=== PATIENT | female | born 1980 | race Hispanic/Latino ===

== ENCOUNTER 2018-07-22 06:37 | Observation (INO) | payer SELFPAY ==
[2018-07-22] MEDS ORDERED: ONDANSETRON 4 MG/2 ML VIAL ONE (07:32)
[2018-07-22] MEDS ORDERED: DICYCLOMINE HCL 10 MG CAP ONE (07:32)
[2018-07-22] MEDS ORDERED: NA CHLORIDE 0.9% 1,000 ML ONE (07:33)
[2018-07-22] MEDS ORDERED: FAMOTIDINE 20 MG/2 ML VIAL IV ONE (07:33)
[2018-07-22 07:37] LABS: Absolute Lymphocytes (CBC) 3.7 K/uL (0.7-4.9); Absolute Monocytes 0.8 K/uL (0.1-1.3); Absolute Neutrophil 8.7 K/uL (1.8-8.0); Basophils % 0.6 % (0-1.3); Eosinophils % 2.7 % (0-4.4); Hematocrit 37.4 % (36.0-45.0); MCH 28.6 pg (27.0-35.0); MCV 84.5 fL (80-100); MPV 8.7 fL (7.6-11.3); Monocytes % 6.1 % (3.3-12.3); RBC Red Blood Cell Count 4.43 M/uL (3.86-4.86)
[2018-07-22 07:45] LABS: ALT/SGPT 24 U/L (12-78); AST/SGOT 16 U/L (15-37); Alkaline Phosphatase 81 U/L (45-117); BUN Blood Urea Nitrogen 10 mg/dL (7-18); Bicarbonate 27 mmol/L (21-32); Bilirubin Direct < 0.1 mg/dL (0-0.2); Bilirubin Total 0.3 mg/dL (0.2-1.0); Glucose Level 119 mg/dL (74-106); Lipase 139 U/L (73-393); Magnesium 2.3 mg/dL (1.8-2.4); Potassium 3.6 mmol/L (3.5-5.1); Protein, Total 7.7 g/dL (6.4-8.2); Sodium Level 138 mmol/L (136-145)
[2018-07-22] MEDS ORDERED: MORPHINE 4 MG/ML SYR ONE (07:59)
[2018-07-22] MEDS ORDERED: MAGNE/ALUM HYDROXD 30 ML UCUP ONE (08:26)
[2018-07-22] MEDS ORDERED: LIDOCAINE VISCOUS 2% SOLN 15 ML UDC ONE (08:26)
[2018-07-22 08:27] LABS: Urine Bacteria 20-50 /HPF (<20); Urine Culture Reflex Order REFLEXED; Urine RBC <5 /HPF (NONE SEEN)
--- NOTE | 2018-07-22 08:27 | RAD REPORT ---
EXAM DESCRIPTION: US - Abdomen Exam Limited - 07/22/2018 7:43 am CLINICAL HISTORY: Abdominal pain, epigastric pain Preliminary findings provided at the time of the study. COMPARISON: None. FINDINGS: Multiple sub centimeter layering gallstones are identifiable. No pericholecystic fluid is present. Mild gallbladder wall thickening is present. No common duct stone or biliary tree dilatation identified. IMPRESSION: Multi stone cholelithiasis with gallbladder wall thickening.
--- NOTE | 2018-07-22 08:33 | ER ---
Nurse's Notes [facility] Name: Yadira Beth Age: 37 yrs Sex: Female : 1980 Arrival Date: 07/22/2018 Time: 06:38 Bed 14 Private MD: Diagnosis: Cholecystitis Presentation: 07/22 06:59 Presenting complaint: Patient states: pain to upper abdomen for the past three months, ch worse the past few days. no vomiting or diarrhea. Transition of care: patient was not received from another setting of care. Onset of symptoms was January 2018. Risk Assessment: Do you want to hurt yourself or someone else? Patient reports no desire to harm self or others. Initial Sepsis Screen: Does the patient meet any 2 criteria? No. Patient's initial sepsis screen is negative. Does the patient have a suspected source of infection? No. Patient's initial sepsis screen is negative. Care prior to arrival: None. 06:59 Method Of Arrival: Ambulatory 06:59 Acuity: ITA 3 ch Triage Assessment: 07:01 General: Appears in no apparent distress. comfortable, Behavior is calm, cooperative, ch appropriate for age. Pain: Complains of pain in abdomen Pain currently is 9 out of 10 on a pain scale. Pain began suddenly. Respiratory: Airway is patent Respiratory effort is even, unlabored, Breath sounds are clear bilaterally. GI: Abdomen is round non-distended, Bowel sounds present X 4 quads. Abd is soft X 4 quads Abdomen is tender to palpation in epigastric area, umbilical area, right upper quadrant and left upper quadrant. Derm: Skin is pink, warm \T\ dry. 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 - Social history:: Smoking status: Patient/guardian denies using tobacco. - Ebola Screening: : Patient negative for fever greater than or equal to 101.5 degrees Fahrenheit, and additional compatible Ebola Virus Disease symptoms Patient denies exposure to infectious person Patient denies travel to an Ebola-affected area in the 21 days before illness onset No symptoms or risks identified at this time. Screenin:03 Abuse screen: Denies threats or abuse. Denies injuries from another. Nutritional ch screening: No deficits noted. Tuberculosis screening: No symptoms or risk factors identified. Fall Risk None identified. Assessment: 07:03 Reassessment: Patient appears in no apparent distress at this time. Patient and/or ch family updated on plan of care and expected duration. Pain level reassessed. Patient is alert, oriented x 3, equal unlabored respirations, skin warm/dry/pink. 07:35 Reassessment: Patient appears in no apparent distress at this time. us at bedside. pt ch is very restless, c/o increase in pain. 07:57 Reassessment: Patient appears in no apparent distress at this time. pt states she does ch not feel any better, new orders obtained for medications. 08:47 Reassessment: Patient appears in no apparent distress at this time. pt is changing and ch removing all belongings for preparation for surgery. Patient states feeling better. Patient states symptoms have improved. 10:00 Reassessment: Patient appears in no apparent distress at this time. I attemped to call ch report, awaiting return call. 10:24 Reassessment: Patient appears in no apparent distress at this time. Patient and/or ch family updated on plan of care and expected duration. Pain level reassessed. Patient is alert, oriented x 3, equal unlabored respirations, skin warm/dry/pink. awaiting floor to return my call so pt can be admitted. Patient states feeling better. Patient states symptoms have improved. Vital Signs: 07:01 BP 123 / 85; Pulse 77; Resp 16; Temp 98.3; Pulse Ox 99% on R/A; Weight 63.5 kg; Height 5 ft. 6 in. (167.64 cm); Pain 8/10; 08:00 BP 120 / 52; Pulse 60; Resp 14; Pulse Ox 100% on R/A; ch 08:35 BP 127 / 78; Pulse 62; Resp 14; Temp 98.9; Pulse Ox 99% on R/A; Pain 2/10; ch 09:30 BP 124 / 76; Pulse 65; Resp 18; Temp 98.5; Pulse Ox 99% on R/A; Pain 3/10; ch 10:24 BP 115 / 62; Pulse 58; Resp 18; Pulse Ox 100% on R/A; Pain 4/10; ch 07:01 Body Mass Index 22.60 (63.50 kg, 167.64 cm) ED Course: 06:38 Patient arrived in ED. ds1 06:42 Christopher Chester PA is PHCP. cp 06:42 Jimmie Billings MD is Attending Physician. cp 06:59 Sandra Springer, KATHRYN is Primary Nurse. ch 07:00 Triage completed. ch 07:01 Arm band placed on left wrist. Patient placed in an exam room, on a stretcher, on pulse ch oximetry. 07:03 Patient has correct armband on for positive identification. Placed in gown. Bed in low ch position. Call light in reach. Side rails up X 1. Adult w/ patient. Pulse ox on. NIBP on. 07:03 No provider procedures requiring assistance completed. ch 07:23 Inserted saline lock: 22 gauge in right forearm, using aseptic technique. ch 07:28 Damien Tolbert MD is Attending Physician. cp 07:41 Ultrasound completed. Patient tolerated well. aa4 07:43 US Abdomen Limited: RUQ/epigastric In Process Unspecified. EDMS 08:00 Warm blanket given. ch 08:32 Pradip Carias MD is Hospitalizing Provider. cp 08:36 No apparent distress. Resting quietly. ch 08:36 Patient admitted, IV remains in place. ch 10:32 Urine Culture Sent. ch Administered Medications: 07:32 Drug: Bentyl 20 mg Route: PO; ch 07:56 Follow up: Response: No adverse reaction; No change in condition ch 07:33 Drug: Zofran 4 mg Route: IVP; Site: right forearm; ch 07:56 Follow up: Response: No adverse reaction; No change in condition ch 07:33 Drug: NS 0.9% 1000 ml Route: IV; Rate: 1 bolus; Site: right forearm; ch 08:15 Follow up: IV Status: Completed infusion; IV Intake: 1000ml ch 07:34 Drug: Pepcid 20 mg Route: IVP; Site: right forearm; ch 07:56 Follow up: Response: No adverse reaction; No change in condition ch 07:56 Drug: morphine 4 mg Route: IVP; Site: right forearm; ch 08:16 Follow up: Response: No adverse reaction; Marked relief of symptoms ch 08:20 Drug: GI Cocktail without - (Maalox Suspension 30 ml, Lidocaine Liquid 2 % 15 ch ml) Route: PO; 08:34 Follow up: Response: No adverse reaction 08:45 Drug: Zosyn 3.375 grams Route: IVPB; Infused Over: 60 mins; Site: right forearm; 10:26 Follow up: IV Status: Completed infusion; IV Intake: 100ml Intake: 08:15 IV: 1000ml; Total: 1000ml. 10:26 IV: 100ml; Total: 1100ml. Outcome: 08:33 Decision to Hospitalize by Provider. cp 10:33 Admitted to Med/surg accompanied by tech, via wheelchair, room 421, Report called to Orly 10:33 Condition: stable 10:33 Instructed on the need for admit. 10:37 Patient left the ED. Signatures: Dispatcher [employer] Sandra Jarvis, KATHRYN RN Ying Brar ds1 Ronda Hartman aa4 Christopher Chester, PA PA
--- NOTE | 2018-07-22 08:33 | EDPHYS ---
Physician Documentation [facility] Name: Yadira Beth Age: 37 yrs Sex: Female : 1980 Arrival Date: 07/22/2018 Time: 06:38 Bed 14 Private MD: ED Physician Damien Tolbert HPI: 07/22 07:15 This 37 yrs old Female presents to ER via Ambulatory with complaints of cp Abdominal Pain - Upper, Back Pain. 07:15 The patient presents with abdominal pain in the epigastric area. Onset: The cp symptoms/episode began/occurred for months, became worse 5 days ago. The symptoms radiate to back. Associated signs and symptoms: Pertinent positives: nausea. 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 - Social history:: Smoking status: Patient/guardian denies using tobacco. - Ebola Screening: : Patient negative for fever greater than or equal to 101.5 degrees Fahrenheit, and additional compatible Ebola Virus Disease symptoms Patient denies exposure to infectious person Patient denies travel to an Ebola-affected area in the 21 days before illness onset No symptoms or risks identified at this time. ROS: 07:20 Constitutional: Negative for body aches, chills, fever, poor PO intake. cp 07:20 Eyes: Negative for injury, pain, redness, and discharge. cp 07:20 Cardiovascular: Negative for chest pain, palpitations. cp 07:20 Respiratory: Negative for cough, shortness of breath, wheezing. 07:20 Abdomen/GI: Positive for abdominal pain, nausea and vomiting, Negative for diarrhea, constipation, black/tarry stool, rectal bleeding. 07:20 Back: Positive for radiated pain, Negative for injury or acute deformity. 07:20 : Negative for urinary symptoms. 07:20 Skin: Negative for cellulitis, rash. 07:20 Neuro: Negative for headache. 07:20 All other systems are negative. cp Exam: 07:30 Constitutional: The patient appears in no acute distress, alert, awake, non-toxic, well cp developed, well nourished, uncomfortable. 07:30 Head/Face: Normocephalic, atraumatic. cp 07:30 Eyes: Periorbital structures: appear normal, Conjunctiva: normal, no exudate, no injection, Sclera: no appreciated abnormality, Lids and lashes: appear normal, bilaterally. 07:30 ENT: External ear(s): are unremarkable, Nose: is normal, Mouth: Lips: moist, Oral mucosa: pink and intact, moist, Posterior pharynx: is normal, airway is patent, no erythema, no exudate, Voice: is normal. 07:30 Neck: ROM/movement: is normal, is supple, without pain, no range of motions limitations, no nuchal rigidity. 07:30 Chest/axilla: Inspection: normal, Palpation: is normal, no crepitus, no tenderness. 07:30 Cardiovascular: Rate: normal, Rhythm: regular. 07:30 Respiratory: the patient does not display signs of respiratory distress, Respirations: normal, no use of accessory muscles, no retractions, no splinting, no tachypnea, labored breathing, is not present, Breath sounds: are clear throughout, no decreased breath sounds, no stridor, no wheezing. 07:30 Abdomen/GI: Inspection: abdomen appears normal, Bowel sounds: active, all quadrants, Palpation: soft, in all quadrants, moderate abdominal tenderness, in the epigastric area and right upper quadrant, rebound tenderness, is not appreciated, voluntary guarding, is elicited in the epigastric area and right upper quadrant. 07:30 Back: pain, that is moderate, of the mid back area, ROM is normal. 07:30 Skin: cellulitis, is not appreciated, no rash present. 07:30 Neuro: Orientation: to person, place \T\ time. Mentation: is normal, Cerebellar function: is grossly normal, Motor: moves all fours, strength is normal, Sensation: is normal. Vital Signs: 07:01 BP 123 / 85; Pulse 77; Resp 16; Temp 98.3; Pulse Ox 99% on R/A; Weight 63.5 kg; Height ch 5 ft. 6 in. (167.64 cm); Pain 8/10; 08:00 BP 120 / 52; Pulse 60; Resp 14; Pulse Ox 100% on R/A; ch 08:35 BP 127 / 78; Pulse 62; Resp 14; Temp 98.9; Pulse Ox 99% on R/A; Pain 2/10; ch 09:30 BP 124 / 76; Pulse 65; Resp 18; Temp 98.5; Pulse Ox 99% on R/A; Pain 3/10; ch 10:24 BP 115 / 62; Pulse 58; Resp 18; Pulse Ox 100% on R/A; Pain 4/10; ch 07:01 Body Mass Index 22.60 (63.50 kg, 167.64 cm) MDM: 06:56 Patient medically screened. cp 08:00 Differential diagnosis: appendicitis, gastritis, pancreatitis, Peptic Ulcer Disease, cp Perf. Duodenal Ulcer, Perf. Gastric Ulcer, Pyelonephritis, Ureterolithiasis, urinary tract infection. 08:30 Data reviewed: vital signs, nurses notes, lab test result(s), radiologic studies, cp ultrasound, I have discussed the patient's presentation/case with the attending Emergency Department Physician; and as a result, I will admit patient. 08:30 Counseling: I had a detailed discussion with the patient and/or guardian regarding: the cp historical points, exam findings, and any diagnostic results supporting the discharge/admit diagnosis, lab results, radiology results. 08:35 Physician consultation: Pradip Carias MD was called at 08:33, was contacted at 08:33, regarding admission, to the medical/surgical unit. patient's condition. 07/22 07:11 Order name: Basic Metabolic Panel; Complete Time: 07:50 07/22 08:15 Interpretation: Normal except: GLUC 119. 07/22 07:11 Order name: CBC with Diff; Complete Time: 08:15 07/22 08:15 Interpretation: Normal except: WBC 13.6; NEUT A 8.7. 07/22 07:11 Order name: Creatinine for Radiology; Complete Time: 08:15 07/22 07:11 Order name: Hepatic Function; Complete Time: 07:50 cp 07/22 07:11 Order name: Lipase; Complete Time: 07:50 cp 07/22 07:11 Order name: Magnesium; Complete Time: 07:50 07/22 07:25 Order name: Urine Dipstick--Ancillary (enter results) eb 07/22 07:25 Order name: Urine --Ancillary (enter results) 07/22 07:34 Order name: Urine Microscopic Only; Complete Time: 08:27 ch 07/22 08:28 Interpretation: Normal except: UBACT 20-50; SQEPI 10-20. cp 07/22 08:29 Order name: Urine Culture EDMS 07/22 08:39 Order name: Basic Metabolic Panel EDMS 07/22 08:39 Order name: Basic Metabolic Panel EDMS 07/22 08:39 Order name: CBC with Automated Diff EDMS 07/22 08:40 Order name: CBC with Automated Diff EDMS 07/22 07:11 Order name: IV Saline Lock; Complete Time: 07:34 cp 07/22 07:11 Order name: Labs collected and sent; Complete Time: 07:34 cp 07/22 07:11 Order name: Urine Dipstick-Ancillary (obtain specimen); Complete Time: 07:34 cp 07/22 07:11 Order name: US Abdomen Limited: RUQ/epigastric; Complete Time: 08:32 cp 07/22 08:39 Order name: NPO; Complete Time: 10:32 EDMS 07/22 08:40 Order name: Lipase EDMS 07/22 08:40 Order name: Lipase EDMS 07/22 08:40 Order name: Liver (Hepatic) Function EDMS 07/22 08:40 Order name: Liver (Hepatic) Function EDMS 07/22 07:11 Order name: Urine Test (obtain specimen); Complete Time: 07:34 cp 07/22 07:11 Order name: NPO; Complete Time: 07:34 cp Administered Medications: 07:32 Drug: Bentyl 20 mg Route: PO; ch 07:56 Follow up: Response: No adverse reaction; No change in condition ch 07:33 Drug: Zofran 4 mg Route: IVP; Site: right forearm; ch 07:56 Follow up: Response: No adverse reaction; No change in condition ch 07:33 Drug: NS 0.9% 1000 ml Route: IV; Rate: 1 bolus; Site: right forearm; ch 08:15 Follow up: IV Status: Completed infusion; IV Intake: 1000ml ch 07:34 Drug: Pepcid 20 mg Route: IVP; Site: right forearm; ch 07:56 Follow up: Response: No adverse reaction; No change in condition ch 07:56 Drug: morphine 4 mg Route: IVP; Site: right forearm; ch 08:16 Follow up: Response: No adverse reaction; Marked relief of symptoms 08:20 Drug: GI Cocktail without - (Maalox Suspension 30 ml, Lidocaine Liquid 2 % 15 ch ml) Route: PO; 08:34 Follow up: Response: No adverse reaction 08:45 Drug: Zosyn 3.375 grams Route: IVPB; Infused Over: 60 mins; Site: right forearm; ch 10:26 Follow up: IV Status: Completed infusion; IV Intake: 100ml Disposition: 17:44 Co-signature as Attending Physician, Damien Tolbert MD. rn Disposition: 07/22/18 08:33 Hospitalization ordered by Pradip Carias for Observation. Preliminary diagnosis is Cholecystitis. - Bed requested for Telemetry/MedSurg (observation). - Status is Observation. ch - Condition is Stable. - Problem is new. - Symptoms have improved. UTI on Admission? No Signatures: Dispatcher [employer] EDMS Sandra Springer RN RN ch Nieto, Roman, MD MD rn Page, Corey, PA PA Leanne Fontana Corrections: (The following items were deleted from the chart) 08:15 08:15 Normal except: WBC 13.6. cp cp 09:44 08:33 Hospitalization Ordered by Pradip Carias MD for Observation. Preliminary diagnosis eb is Cholecystitis. Bed requested for Telemetry/MedSurg (observation). Status is Observation. Condition is Stable. Problem is new. Symptoms have improved. UTI on Admission? No. cp 10:37 09:44 07/22/2018 08:33 Hospitalization Ordered by Pradip Carias MD for Observation. Preliminary diagnosis is Cholecystitis. Bed requested for Telemetry/MedSurg (observation). Status is Observation. Condition is Stable. Problem is new. Symptoms have improved. UTI on Admission? No. eb
[2018-07-22] MEDS ORDERED: MORPHINE 4 MG/ML SYR IV PRN (08:36)
[2018-07-22] MEDS ORDERED: ONDANSETRON 4 MG/2 ML VIAL IV PRN (08:36)
[2018-07-22] MEDS ORDERED: ACETAMINOPHEN 500 MG TAB PO PRN (08:36)
[2018-07-22] MEDS ORDERED: PIPER/TAZO/NS 3.375gm 3.375 GM/100 ML BAG ONE (08:46)
[2018-07-22] MEDS ORDERED: D5 0.45 NS 1,000 ML IV SCH (09:00)
[2018-07-22] MEDS ORDERED: PIPER/TAZO/NS 3.375gm 3.375 GM/100 ML BAG IVPB SCH (09:00)
[2018-07-22 11:21] VITALS: BMI 22.6
[2018-07-22] MEDS ORDERED: BUPIVACAINE 0.25% PF 10 ML VIAL ONE (11:29)
[2018-07-22 11:31] LABS: Urine Blood NEGATIVE (NEG); Urine Glucose TRACE (NEG); Urine Protein TRACE (NEG); Urine Specific Gravity 1.025 (1.005-1.030); Urine pH 5.5 (5.0-7.0)
[2018-07-22] MEDS ORDERED: FENTANYL CITR 100 MCG/2 ML ONE (11:33)
[2018-07-22] MEDS ORDERED: PROPOFOL 200 MG/20 ML VIAL IV ONE (11:33)
[2018-07-22] MEDS ORDERED: Ringers Lactate 1,000 ML IV ONE (11:34)
[2018-07-22] MEDS ORDERED: MIDAZOLAM HCL 2 MG/2 ML INJ ONE (11:34)
[2018-07-22] MEDS ORDERED: LIDOCAINE 2% MPF 5 ML VIAL ONE (11:34)
[2018-07-22] MEDS ORDERED: ROCURONIUM 50 MG/5 ML VIAL IV ONE (11:36)
[2018-07-22] MEDS ORDERED: ONDANSETRON HCL 40 MG/20 ML VIAL ONE (11:36)
[2018-07-22] MEDS ORDERED: INFLUENZA VACCINE (for 3y+) 0.5 ML DOSE IMVAC ONE (12:00)
[2018-07-22] MEDS ORDERED: GLYCOPYRROLATE 0.2 MG/ML SYR ONE (12:50)
--- NOTE | 2018-07-22 12:50 | P.OP ---
Photoengraving Printer: Derek Lopez Preoperative diagnosis: Acute Calculous Cholecystitis Postoperative diagnosis: Acute Calculous Cholecystitis Primary procedure: Laparoscopic Cholecystectomy Anesthesia: GETA + Local Estimated blood loss: <10cc Specimen: Gallbladder Findings: mild inflammation of gallbladder Complications: None Transferred to: Recovery Room Condition: Good
[2018-07-22] MEDS: MEPERIDINE HCL 50 MG/ML AMP ONE ×3 (13:14→13:35)
--- NOTE | 2018-07-22 13:39 | OP ---
Date of Procedure: 07/22/2018 Surgeon: Pradip Carias MD, [employer] Supervisor: Yumi Grossman. Preoperative Diagnosis: Acute calculous cholecystitis. Postoperative Diagnosis: Acute calculous cholecystitis. Procedure Performed: Laparoscopic cholecystectomy. Anesthesia: General endotracheal plus local with 0.25% Marcaine without epinephrine. Estimated Blood Loss: Less than 10 cc. Specimens: Gallbladder. Findings: Mild inflammation of gallbladder. Complications: None. Disposition: Transferred to recovery room in good condition. Procedure In Detail: After informed consent was obtained, the patient was brought to the operating r oom, prepped and draped in the usual sterile fashion. After adequate anesthesia was achieved, a supr aumbilical area was anesthetized with 0.25% Marcaine, sharply incised, and a 5-mm trocar was introduc ed in the abdomen without evidence of complication, insufflation was obtained to 15 mmHg at this time . There was no injury to vital structures upon entry into the abdomen. The abdomen was inspected. There were no acute pathologic findings at the time upon entry. Additional trocar site was chosen in the epigastrium. This was similarly anesthetized, sharply incised. A 5-mm trocar was introduced in the abdomen without evidence of complication. Additional trocar site was chosen in the right upper quadrant. This was similarly anesthetized, sharply incised. A 5-mm trocar was introduced in the abd omen without evidence of complication. The umbilical trocar was then up-sized to 12 mm under direct visualization without evidence of complication. The patient was positioned in head up right-side up position. Ratcheted grasper was used to grasp the gallbladder, which was found to be floppy with sto aurora evident. It was placed toward the patient's right shoulder to allow for visualization down to th e Henrik pouch region of the gallbladder. Dissection continued down to expose 2 structures enterin g the gallbladder. These were identified as the cystic duct and cystic artery. The critical view of safety was obtained at this time. After careful dissection was performed, and the clips were placed doubly on the proximal side and singly on the distal side of both the cystic duct and cystic artery. The Endo-Maria A were then used to ligate the both structures, and the gallbladder was removed from the hepatic fossa without evidence of complication with electrocautery. The gallbladder was then brittany zayra in EndoCatch bag and removed through the umbilical trocar. Insufflation was re-obtained at this time. The area was inspected. Proper hemostasis was achieved at this time without additional hemost atic maneuvers and the clips were found to be in good position without any leakage. There was no lyric e leakage during the procedure. The area was copiously irrigated multiple times and suctioned until completely dry. The patient was positioned in the neutral position. The umbilical trocar was remove d. The umbilical trocar site closed using a Vern-Timothy suture passer and 0 Vicryl in interrupte d fashion with good approximation of tissues. The abdomen was then completely desufflated under dire ct visualization without evidence of complication and all trocars then removed. All skin incisions w ere copiously irrigated and closed with a 4-0 Monocryl in a running fashion, Dermabond placed over to p. The patient tolerated the procedure well without evidence of complication and transferred to the PACU in good condition. All counts were correct at the end of the case. SHARDA/PINEDA Voice ID: [id number] Report ID: [id number]
[2018-07-22 13:44] VITALS: BP 105/62; TEMP 97; O2SAT 96
--- NOTE | 2018-07-23 01:06 | HP ---
Date of Admission: 07/22/2018 Brief History Of Present Illness: The patient is a 37-year-old female, who presents to the hospital approximately 1-day history of acute right upper quadrant and epigastric abdominal pain radi ating through to her back. She has had similar episodes over the past 3 months. She has had multipl e episodes all associated with greasy fried meals. She had a greasy fried meal of Spanish food yeste rday and this exacerbated her current situation. She states that she had some nausea, vomiting, some subjective fever and chills and she was very similar to her previous episodes in the past. She has some symptomatic improvement at this time, but she continues to have soreness of the epigastrium and right upper quadrant associated. Past Medical History: Negative. Past Surgical History: She has had 3 C sections. Allergies: NO KNOWN DRUG ALLERGIES. Medications: None. Social History: She denies smoking, alcohol, or recreational drug use. Her primary language is Span paige. I spoke to the patient with presence of the family members, who all interpret for her as well a s staff, who is fluent in Frisian. Review of Systems: A 10-point review of systems other than HPI, denies. Physical Examination: Vital Signs: At the time my examination, her BMI 22.6. General: She is awake, alert, oriented. Psychiatric: She is appropriate, conversive. HEENT: Normocephalic. Sclerae icteric. Mucous members are moist. Oropharynx clear. Neck: Supple. No JVD. Chest: Normal expansion and excursion. Cardiovascular: Regular rate and rhythm. Pulmonary: Clear to auscultation bilaterally. Abdomen: Soft with mild epigastric and right upper quadrant tenderness to palpation. Negative Ludy y sign. No rebound. No guarding. No focal peritonitis. Abdomen: Obese generally. Extremities: No clubbing, cyanosis, or edema. Skin: Warm, dry. Laboratory Data: Her white blood cell count 13.6, hemoglobin 12.7, hematocrit 37.4, platelet count i s 369. Her sodium 138, potassium 3.6, chloride 104, carbon dioxide 27, BUN 10, creatinine 0.6, gluco se is 119, calcium 9.4, magnesium 2.3, total bilirubin 0.3, AST is 15, ALT 24, alkaline phosphatase i s 81, lipase is 139. UA is currently pending including urine test. She had an abdominal u ltrasound performed, which was officially read as multiple subcentimeter layering gallstones identifi ed. No pericholecystic fluid is present. Mild gallbladder wall thickening is present. No common du ct stone or biliary tree dilatation identified. The official impression is multi stone cholelithiasi s with gallbladder wall thickening. Assessment And Plan: This is a 37-year-old female, who presents with signs and symptoms of acute tiarra culous cholecystitis. 1.IV fluid hydration. 2.Antibiotic coverage with Zosyn 3.375 IV q.6. 3.Follow up on urine test prior to surgical intervention. 4.I have explained the risks, benefits, and alternatives of laparoscopic, possible open cholecystect santana including, but not limited to bleeding, infection, damage to surrounding tissues, injury to bile ducts, intestines, need for further operation and procedures. The patient agrees to proceed as indica luz. SHARDA/PINEDA Voice ID: [id number]
== END 2018-07-22 18:34 | disposition home or self-care (01) ==
LOC: ER 06:37 → ERHOLD 08:37 → 4TH 10:33
PROVIDERS: ADMIT Surgery; ATTEND Surgery
PROC: 0FT44ZZ Resection of Gallbladder, Percutaneous Endoscopic Approach (ICD-10-PCS; principal; 2018-07-22 11:45)
DX: K80.00 Calculus of gallbladder with acute cholecystitis without obstruction (principal)
CPT/HCPCS: 36415; 76705; 80048; 80076; 81003; 81015; 81025; 83690; 83735; 85025; 87086; 87088; 88304; 96361; 96365; 96366; 96375; 99285; G0378; J2175; J2250; J2405; J2543; J2704; J3010; J7030